=== PATIENT | female | born 1950 | race Hispanic/Latino ===

== ENCOUNTER 2017-06-02 11:59 | Outpatient (CLI) | payer MEDICARE | END 2017-06-02 12:00 | disposition home or self-care (01) | LOC: MWLC RAD 11:59 | PROVIDERS: ATTEND Internal Medicine Geriatric Medicine | DX: Z53.9 Procedure and treatment not carried out, unspecified reason (principal) ==

== ENCOUNTER 2017-07-27 07:28 | Outpatient (CLI) | payer MEDICARE ==
--- NOTE | 2017-07-27 09:12 | CT ---
CT ABDOMEN AND PELVIS WITHOUT CONTRAST: HISTORY: Periumbilical abdominal pain, R1.33. FINDINGS: Noncontrast-enhanced CT images abdomen and pelvis per order of ordering physician. The lung bases are unremarkable. No evidence of free intraperitoneal air is seen. Solid organs are suboptimally evaluated due to the fact that IV contrast was not given. The gallbla dder has been surgically removed. No evidence of periaortic lymphadenopathy is seen. No dilated lo ops of bowel seen. No evidence of renal calculi seen. Atherosclerotic calcification of the abdomin al aorta is seen. There is some fullness in the right ovary possibly representing a right ovarian m ass or cyst. The left ovary is not well seen. Further workup using pelvic sonography may be of use . A normal appendix is seen. IMPRESSION: 1. Right ovarian fullness in a patient of this age. Further workup using pelvic sonography is radha mmended. 2. Suboptimal evaluation of the solid organs due to the fact that IV contrast was not given. POS: [facility]
== END 2017-07-27 07:29 | disposition home or self-care (01) ==
LOC: CT 07:28
PROVIDERS: ATTEND Internal Medicine Geriatric Medicine
DX: R10.33 Periumbilical pain (principal)
CPT/HCPCS: 74176

== ENCOUNTER 2017-12-04 08:25 | Outpatient (CLI) | payer MEDICARE | END 2017-12-04 08:26 | disposition home or self-care (01) | LOC: BICMAMMO 08:25 | PROVIDERS: ATTEND Internal Medicine Geriatric Medicine | DX: Z12.31 Encounter for screening mammogram for malignant neoplasm of breast (principal) | CPT/HCPCS: 77063; 77067 ==